=== PATIENT | male | born 1965 | race Native Hawaiian/Other Pacific Islander ===

== ENCOUNTER 2018-09-03 07:59 | Emergency (ER) | payer OTHER ==
[~2018-09-03] VITALS: Ht 167.6 cm; Wt 74.4 kg
[2018-09-03] MEDS ORDERED: LIDOCAINE 1% INJ 20 ML 20 ML VIAL ONE (08:26)
[2018-09-03] MEDS ORDERED: LIDOCAINE 1% INJ 20 ML 20 ML VIAL INJ ONE (08:30)
--- NOTE | 2018-09-03 08:41 | ED Lower Extremity ---
General Chief Complaint: Lower Extremity Stated Complaint: RT FOOT PAIN History of Present Illness Date Seen by Provider: Sep 03, 2018 Time Seen by Provider: 08:41 Allergies and Home Medications Allergies Coded Allergies: No Known Drug Allergies (Unverified , 09/03/18) Patient Home Medication List Home Medication List Reviewed: Yes Review of Systems Constitutional: no symptoms reported; No fever Physical Exam Vital Signs Vital Signs - First Documented 09/03/18 08:07 Temp 97.4 Pulse 94 Resp 16 B/P (MAP) 136/85 (102) Pulse Ox 96 O2 Delivery Room Air Capillary Refill : Height, Weight, BMI Height: '" Weight: lbs. oz. kg; BMI Method: General Appearance: WD/WN, no apparent distress Progress/Results/Core Measures Results/Orders My Orders Orders - DOT AVENDAÑO DO Foot 3 View Right (09/03/18 08:15) Lidocaine 1% Inj 20 Ml (Xylocaine 1% Inj (09/03/18 08:30) Foot 3 View Right (09/03/18 ) Lidocaine 1% Inj 20 Ml (Xylocaine 1% Inj (09/03/18 08:26) Cefazolin Injection (Ancef Injection) (09/03/18 09:09) Water (Sterile) For Injection (Sterile W (09/03/18 09:09) Sulfamethoxazole/Trimet Ds Tab (Bactrim (09/03/18 09:10) Dipht,Pertuss(Acell),Tet Adult (Boostrix (09/03/18 09:21) Vital Signs/I&O 09/03/18 09/03/18 08:07 09:35 Temp 97.4 97.4 Pulse 94 94 Resp 16 16 B/P (MAP) 136/85 (102) 136/85 (102) Pulse Ox 96 96 O2 Delivery Room Air Room Air Progress Progress Note : Progress Note Paper chart due to downtime Departure Impression Primary Impression: Foot abscess, right Disposition: 01 HOME, SELF-CARE Condition: Stable DOT AVENDAÑO DO Sep 03, 2018 08:41
[2018-09-03] MEDS ORDERED: WATER (STERILE) FOR INJECTION 10 ML ONE (09:09)
[2018-09-03] MEDS ORDERED: ceFAZolin INJECTION 2,000 MG ONE (09:09)
[2018-09-03] MEDS ORDERED: TRIM/SULFAMETH 160/800 (SEPTRA DS) TAB PO ONE (09:10)
[2018-09-03] MEDS ORDERED: TETANUS,DIPTH,PERTUSS P/F (BOOSTRIX) 0.5 ML VIAL IM ONE (09:21)
[2018-09-03 09:35] VITALS: BP 136/85
--- NOTE | 2018-09-03 14:20 | Diagnostic Imaging Report ---
PATIENT HISTORY: RIGHT FOOT PAIN. TECHNIQUE: Three views of the right foot were performed. COMPARISON: None. FINDINGS: There are moderate degenerative changes at the first MTP joint. Mild degenerative changes are seen in the midfoot. There is a moderate-sized plantar calcaneal enthesophyte. No acute fracture is seen in the right foot. IMPRESSION: Degenerative changes in the right foot with no acute osseous abnormality seen. Dictated by: Dictated on workstation # [id number]
== END 2018-09-03 09:35 | disposition home or self-care (01) ==
LOC: ER FS 08:00
DX: L02.611 Cutaneous abscess of right foot (principal)
CPT/HCPCS: 10061; 73630

== ENCOUNTER 2018-09-05 09:04 | Emergency (ER) | payer OTHER ==
[~2018-09-05] VITALS: Ht 167.6 cm; Wt 74.4 kg
[2018-09-05] MEDS ORDERED: MUPI15CR11 TP (09:29)
--- NOTE | 2018-09-05 09:29 | ED Suture Removal/Wound Check ---
Suture/Wound Re-check Suture Removal/Wound Recheck : Suture Removal/Wound Recheck: Dry/sterile dressing-appl, Packing removed General Appearance: WD/WN, no apparent distress Physical Exam Vital Signs Capillary Refill : Departure Impression Primary Impression: Cellulitis Disposition: HOME, SELF-CARE Condition: Improved Departure-Patient Inst. Decision time for Depature: 09:26 Referrals: NO,LOCAL PHYSICIAN (PCP/Family) Primary Care Physician Patient Instructions: Wound Incision and Drainage (DC) Add. Discharge Instructions: All discharge instructions reviewed with patient and/or family. Voiced understanding. CONTINUE CURRENT ANTIBIOTIC. USE NEW Rx DIRECTED. KEEP CLEAN AND DRY. FOLLOW UP WITH YOUR DOCTOR UPON RETURN TO [place]. Scripts Mupirocin Calcium (Mupirocin) 15 Gm Cream..g. 1 APPLIC TP BID, #1 TUBE 0 Refills Prov: JERRY TAYLOR DO 09/05/18 JERRY TAYLOR DO Sep 05, 2018 09:29
[2018-09-05 09:50] VITALS: BP 148/89
== END 2018-09-05 09:50 | disposition home or self-care (01) ==
LOC: EDUNIT# 09:04 → ER FS 09:06
DX: L03.115 Cellulitis of right lower limb (principal)